=== PATIENT | female | born 1980 | race Caucasian/White ===

== ENCOUNTER 2016-10-31 17:35 | Emergency (ER) | payer OTHER ==
[~2016-10-31] VITALS: Ht 165.1 cm; Wt 64.0 kg
[~2016-10-31 17:35] MED LIST: ENDOCET 5-3251 EACH PO; IBUPROFEN800 MG PO; Motrin PO; PRENATAL1 EACH PO; TYLENOL325 M1 PO
[2016-10-31 18:18] VITALS: BP 148/68
== END 2016-10-31 18:37 | disposition home or self-care (01) ==
LOC: EME 17:35
DX: L25.9 Unspecified contact dermatitis, unspecified cause (principal); M79.602 Pain in left arm
CPT/HCPCS: 99281; 99283